=== PATIENT | male | born 2000 | race Caucasian/White ===

== ENCOUNTER 2023-06-07 08:58 | Emergency (ER) | payer SELFPAY ==
[2023-06-07 09:08] VITALS: BP 125/74; PULSE 62; RESP 16; TEMP 36.4; O2SAT 98; BMI 25.1
--- NOTE | 2023-06-07 09:39 | XR_ITS ---
WS: [id number] Exam: XR chest 1V portable [id number] Date/Time of Exam: 06/07/2023 9:41 AM Reason For Exam: dyspnea/cough Findings: The lungs are clear and fully expanded. Costophrenic angles are sharp. No infiltrates. Bronchovascula r relief appears normal. Cardiac silhouette is unremarkable. Bony elements are intact. IMPRESSION: Unremarkable chest radiograph.
--- NOTE | 2023-06-07 09:51 | ED_ITS ---
HPI - Abdominal Pain 2 General: Chief Complaint: Abdominal Pain Stated Complaint: abd pain, throwing blood up Time Seen by Provider: 06/07/23 09:37 Source: patient Mode of arrival: ambulatory History of Present Illness: 22-year-old male presents emergency room with epigastric discomfort. States he has a history of hiatal hernia he is not on any proton pump inhibitors. Does not use any alcohol on a regular basis has not had any alcohol in over a week. States he had several episodes of hematemesis this morning since 6 AM. No previous history upper GI bleed no melena or hematochezia. He does not take large amounts of NSAIDs. No fever sweats chills. MD elicited complaint: abdominal pain Pertinent past history: none Onset (ago): hour(s) Pain Consistency: constant Location: Epigastric Severity: moderate Quality: sharp Associated Symptoms: Reports hematemesis, poor appetite and vomiting; Denies anorexia, belching, bloating, change in bowel habits, change in stool character, chills, coffee ground emesis, constipation, GI cramping, diarrhea, dyspepsia, dysuria, excessive flatus, fever(s), heartburn, hematochezia, hematuria, fecal incontinence, loose stools, melena, nausea and syncope Review of Systems 2 Const: Denies: fever(s) or chills Card: Denies: syncope Resp: Denies: dyspnea GI: Reports: vomiting and hematemesis; Denies: nausea, coffee ground emesis, heartburn, diarrhea, constipation, bloating, GI cramping, belching, excessive flatus, fecal incontinence, change in bowel habits, change in stool character, hematochezia or melena : Denies: dysuria or hematuria Musc: Denies: neck pain or back pain Skin/Breast: Denies: rash Physical Exam 2 Const: COMMON NORMALS: no acute distress GENERAL APPEARANCE: cooperative and comfortable ORIENTATION/CONSCIOUSNESS: Yes awake, Yes oriented to person, Yes oriented to place and Yes oriented to time HENMT: COMMON NORMALS: normocephalic, atraumatic and hearing grossly normal bilaterally HEAD & SCALP: normocephalic and atraumatic Resp: COMMON NORMALS: normal respiratory effort, No retractions, No use of accessory muscles and clear to auscultation bilaterally AUSCULTATION: clear to auscultation bilaterally Cardio: COMMON NORMALS: regular rate, regular rhythm and No murmurs present (Cardio) RATE: regular rate RHYTHM: regular rhythm GI: COMMON NORMALS: Soft to palpation and No hepatosplenomegaly present A USCULTATION: Yes normoactive bowel sounds PALPATION: Yes Soft to palpation, No Tenderness to palpation present (GI), No Guarding due to palpation present (GI) and Yes No hepatosplenomegaly present Extremity: COMMON NORMALS: normal to inspection, capillary refill normal, no clubbing, cyanosis or edema, no calf tenderness and no pedal edema Neuro: SENSORIUM/ORIENTATION: Yes oriented to person, Yes oriented to place and Yes oriented to time Skin: COMMON NORMALS: no rashes or lesions noted GENERAL SKIN EXAM: no rashes or lesions noted Course 2 Vital Signs: Vital signs: Vital Signs Temperature 97.6 F 06/07/23 09:08 Pulse Rate 42 L 06/07/23 13:00 Respiratory Rate 16 06/07/23 13:00 Blood Pressure 112/66 06/07/23 13:00 Pulse Oximetry 96 06/07/23 13:00 Oxygen Delivery Me thod Room Air 06/07/23 09:08 MDM - Abdominal Pain Medical Decision Making BUN normal hemoglobin stable CT does not show any sign of active bleed or acute abdominal pathology discharge home on Protonix twice daily 10 days then daily follow-up with general surgery to evaluate if persisting with symptoms may need EGD. Lab Data 06/07/23 09:48 06/07/23 09:48 Labs/Radiology: Laboratory Results WBC 4.94 10^3/uL (3.29-11.43) 06/07/23 09:48 RBC 5.10 10^6/uL (3.85-5.65) 06/07/23 09:48 Hgb 13.90 g/dL (11.27-16.99) 06/07/23 09:48 Hct 43.0 % (37-53) 06/07/23 09:48 MCV 84.3 fl (82-101) 06/07/23 09:48 MCH 27.3 pg (27-33) 06/07/23 09:48 MCHC 32.3 g/dL (30-55) 06/07/23 09:48 RDW 13.2 % (12.1-15.1) 06/07/23 09:48 Plt Count 218 10^3/cmm (157-399) 06/07/23 09:48 MPV 11.2 fL (7.4-10.4) H 06/07/23 09:48 Neut % (Auto) 53.5 % 06/07/23 09:48 Lymph % (Auto) 33.4 % 06/07/23 09:48 [place] % (Auto) 10.9 % 06/07/23 09:48 Eos % (Auto) 1.0 % 06/07/23 09:48 Baso % (Auto) 1.0 % 06/07/23 09:48 Neut # (Auto) 2.64 10^3/uL (1.8-7.7) 06/07/23 09:48 Lymph # (Auto) 1.7 10^3/uL (0.8-4.8) 06/07/23 09:48 [place] # (Auto) 0.5 10^3/uL (0.2-0.9) 06/07/23 09:48 Eos # (Auto) 0.1 10^3/uL (0.0-0.8) 06/07/23 09:48 Baso # (Auto) 0.1 10^3/uL (0.0-0.1) 06/07/23 09:48 Nucleated RBC % (auto) 0 % 06/07/23 09:48 Nucleated RBCs # 0.0 /100WBC 06/07/23 09:48 Sodium 141 mmol/L (136-145) 06/07/23 09:48 Potassium 4.0 mmol/L (3.5-5.1) 06/07/23 09:48 Chloride 106 mmol/L (98-107) 06/07/23 09:48 Carbon Dioxide 26 mmol/L (22-29) 06/07/23 09:48 Anion Gap 13.0 (5-19) 06/07/23 09:48 BUN 9 mg/dL (6-20) 06/07/23 09:48 Creatinine 0.8 mg/dL (0.7-1.2) 06/07/23 09:48 GFR Calculation 120.9 mL/min (90-130) 06/07/23 09:48 Glucose 112 mg/dL (65-115) 06/07/23 09:48 Calculated Osmolality 291 mOsm/kg (285-295) 06/07/23 09:48 Calcium 9.5 mg/dL (8.5-10.5) 06/07/23 09:48 Total Bilirubin 0.2 mg/dL (0.15-1.2) 06/07/23 09:48 AST 11 U/L (0-40) 06/07/23 09:48 ALT 11 U/L (0-41) 06/07/23 09:48 Alkaline Phosphatase 64 U/L (40-130) 06/07/23 09:48 Total Protein 6.8 g/dL (6.6-8.7) 06/07/23 09:48 Albumin 4.6 g/dL (3.5-5.2) 06/07/23 09:48 Globulin 2.2 g/dL (1.3-4.6) 06/07/23 09:48 Lipase 17 U/L (13-60) 06/07/23 09:48 Urine Color Yellow (Yellow) 06/07/23 12:00 Urine Appearance Clear (CLEAR) 06/07/23 12:00 Urine pH 8 (5-7) H 06/07/23 12:00 Ur Specific [place] 1.010 (1.005-1.030) 06/07/23 12:00 Urine Protein Neg (Negative) 06/07/23 12:00 Urine Glucose (UA) Norm (Normal) 06/07/23 12:00 Urine Ketones Negative (Negative) 06/07/23 12:00 Urine Blood Neg (Negative) 06/07/23 12:00 Urine Nitrate Negative (Negative) 06/07/23 12:00 Urine Bilirubin Neg (Negative) 06/07/23 12:00 Prot Sulfosalicylic Acd Negative (Negative) 06/07/23 12:00 Urine Urobilinogen Norm mg/dL (Negative) 06/07/23 12:00 Ur Leukocyte Esterase Negative (Negative) 06/07/23 12:00 All radiology interpretation(s) finalized by discharge Discharge Plan Discharge Patient Disposition: Home Clinical Impression: Gastroesophageal reflux disease Condition: Stable Prescriptions: New Protonix 40 mg tablet,delayed release (DR/EC) 40 mg PO BID 10 Days Qty: 40 0RF Rx Instructions: Twice daily for 10 days then daily No Action Tylenol Ex Str Rapid Release 500 mg Tablet 1,000 - 1,500 mg PO Q6H PRN (Reason: Pain) Discharge Orders: Discharge ED (Routine); Ordered 06/07/23 Ordered By: Mnior Leahy Discharge Diet: As Directed Discharge Activity: Resume usual activity Patient Instructions: Diet for Stomach Ulcers and Gastritis (ED), GERD (Gastroesophageal Reflux Disease) (ED), Opioid Safety, Pain Management Activity Restrictions/Additional Instructions: Thank you for choosing [facility] for your healthcare needs today. Please realize this is an emergency room and that we are providing you with a medical screening exam and this may not be complete and all inclusive of all the testing and or work up that you may need to determine your ailment or severity of your illness. It is very important that you follow up as instructed or that you return to the Emergency Department should you have concerns or if your condition changes or worsens in any way. You were seen today for abdominal pain. CT and laboratory tests were unremarkable there is no sign of active GI bleed on any of the testing done. Do recommend that you start on Protonix twice daily for 10 days then once daily thereafter follow-up with surgery to reevaluate. Case management make appointment for you. Coding Level of Care Code ED Assistant Prosecuting Attorney for Isabel Landaverde
[2023-06-07 10:12] LABS: Basophils # 0.1 10^3/uL (0.0-0.1); Eosinophils # 0.1 10^3/uL (0.0-0.8); Lymphocytes # 1.7 10^3/uL (0.8-4.8); Lymphocytes % 33.4 %; Mean Corpuscular HGB Conc 32.3 g/dL (30-55); Mean Corpuscular Hemoglobin 27.3 pg (27-33); Mean Corpuscular Volume 84.3 fl (82-101); Mean Platelet Volume 11.2 fL (7.4-10.4); Monocytes # 0.5 10^3/uL (0.2-0.9); Monocytes % 10.9 %; Neutrophils # 2.64 10^3/uL (1.8-7.7); Neutrophils % 53.5 %; Nucleated Red Blood Cells % 0 %; Platelet Count 218 10^3/cmm (157-399); Red Cell Distribution Width 13.2 % (12.1-15.1); White Blood Count 4.94 10^3/uL (3.29-11.43)
[2023-06-07] MEDS: pantoprazole 40 mg SDV 80 MG IVP (10:12)
[2023-06-07] MEDS: sodium chloride 0.9% 1,000 ML 999 ML IV (10:12)
[2023-06-07] MEDS: ondansetron 2 mg/ML SDV 2 mL 4 MG IVP (10:12)
[2023-06-07 10:33] LABS: Alanine Aminotransferase 11 U/L (0-41); Albumin Level 4.6 g/dL (3.5-5.2); Alkaline Phosphatase 64 U/L (40-130); Aspartate Amino Transferase 11 U/L (0-40); Blood Urea Nitrogen 9 mg/dL (6-20); Calcium 9.5 mg/dL (8.5-10.5); Carbon Dioxide 26 mmol/L (22-29); Chloride 106 mmol/L (98-107); Creatinine Clr Calc Pharmacy 150.0903; Globulin 2.2 g/dL (1.3-4.6); Glomerular Filtration Rate 120.9 mL/min (90-130); Glucose 112 mg/dL (65-115); Lipase 17 U/L (13-60); Osmolality Calculated 291 mOsm/kg (285-295); Sodium 141 mmol/L (136-145); Total Bilirubin 0.2 mg/dL (0.15-1.2); Total Protein 6.8 g/dL (6.6-8.7)
--- NOTE | 2023-06-07 11:05 | CT_ITS ---
WS: [id number] CT ABDOMEN PELVIS TECHNIQUE: Contrast-enhanced CT of the abdomen and pelvis with coronal and sagittal reformatted image s. CLINICAL INFORMATION: abd pain COMPARISON: None. DLP: 465.[address] scans at [facility] use at least one of these dose optimization techniques: automated e xposure control; mA and/or kV adjustment per patient size (includes targeted exams where dose is matc hed to clinical indication); or iterative reconstruction. FINDINGS: Normal air-filled appendix in the RIGHT lower quadrant. No evidence of acute appendicitis. Mild diffuse fatty filtration of the liver. Normal portal vein and splenic vein. Normal spleen. Lung bases are well aerated. Normal GE junction. Air-fluid level in the stomach. Adrenal glands are normal . Normal renal parenchymal enhancement. No hydronephrosis. Celiac and SMA are patent. Tiny fat-containing umbilical hernia. No evidence of high-grade small or l arge bowel obstruction. The IMPRESSION: No acute findings in the abdomen or pelvis.
[2023-06-07] MEDS: iohexol 350 mg/mL 500 mL Btl (per mL) IV (11:21)
[2023-06-07 12:00] VITALS: BP 110/64; PULSE 49; RESP 16; O2SAT 98
[2023-06-07 12:30] VITALS: BP 110/65; PULSE 49; RESP 16; O2SAT 96
[2023-06-07 12:39] LABS: Add Urine Microscopic? NO; Charge for UA Resulting for Rev
[2023-06-07 12:57] LABS: Bilirubin Urine Neg (Negative); Blood Urine Neg (Negative); Glucose Urine UA Norm (Normal); Ketones Urine Negative (Negative); Leukocyte Esterase Urine Negative (Negative); Nitrate Urine Negative (Negative); Protein Urine Neg (Negative); Sulfosalicylic Acid Urine Negative (Negative); Urine Appearance Clear (CLEAR); Urine Color Yellow (Yellow); Urobilinogen Urine Norm (Negative); pH Urine 8 (5-7)
[2023-06-07 13:00] VITALS: BP 112/66; PULSE 42; RESP 16; O2SAT 96
--- NOTE | 2023-06-07 15:44 | DCPLANNER ---
Message was sent to general surgery on 06/07/23 at [id number]. Clinic to contact patient.
== END 2023-06-07 13:47 | disposition home or self-care (01) ==
PROVIDERS: Emergency Provider Family Medicine
DX: K21.9 Gastro-esophageal reflux disease without esophagitis (principal)
CPT/HCPCS: 71045; 74177; 80053; 81003; 83690; 85025; 96374; 96375; 99285; C9113; J2405; J7030; Q9967

== ENCOUNTER 2023-06-27 08:45 | Emergency (ER) | payer SELFPAY ==
[2023-06-27 08:52] VITALS: BP 156/88; PULSE 65; RESP 18; TEMP 36.4; O2SAT 95; BMI 25.8
--- NOTE | 2023-06-27 09:16 | ED_ITS ---
HPI - URI/Sore Throat General: Chief Complaint: Upper Respiratory Infection Stated Complaint: sore throat, fever, cold sweats, body aches Time Seen by Provider: 06/27/23 08:54 Source: patient Mode of arrival: ambulatory History of Present Illness: 23-year-old male presents emergency room complaining of fever and sore throat. MD elicited complaint: fever, cough and sore throat Associated symptoms: Deny abdominal pain, change in voice, chills, chest pain, congestion, cough, diarrhea, epistaxis, ear or mastoid pain, fever(s), headache(s), myalgias, nasal congestion, nausea, rash, rhinorrhea, short of breath, sinus pain, stiffness, sore throat or vomiting Review of Systems Const: Denies: fever(s) or chills ENMT: Denies: ear or mastoid pain, nasal congestion, epistaxis or sinus pain Card: Denies: chest pain Resp: Denies: dyspnea GI: Denies: abdominal pain, nausea, vomiting or diarrhea : Denies: dysuria, urinary frequency or urinary urgency Musc: Denies: neck pain or back pain Skin/Breast: Denies: rash Neuro: Denies: headache(s) Physical Exam Const: COMMON NORMALS: no acute distress GENERAL APPEARANCE: cooperative and comfortable ORIENTATION/CONSCIOUSNESS: Yes awake, Yes oriented to person, Yes oriented to place and Yes oriented to time HENMT: COMMON NORMALS: normocephalic, atraumatic and hearing grossly normal bilaterally HEAD & SCALP: normocephalic and atraumatic Resp: COMMON NORMALS: normal respiratory effort, No retractions, No use of accessory muscles and clear to auscultation bilaterally AUSCULTATION: clear to auscultation bilaterally Cardio: COMMON NORMALS: regular rate, regular rhythm and No murmurs present (Cardio) RATE: regular rate RHYTHM: regular rhythm GI: COMMON NORMALS: Soft to palpation and No hepatosplenomegaly present AUSCULTATION: Yes normoactive bowel sounds PALPATION: Yes Soft to palpation, No Tenderness to palpation present (GI), No Guarding due to palpation present (GI) and Yes No hepatosplenomegaly present Extremity: COMMON NORMALS: normal to inspection, capillary refill normal, no clubbing, cyanosis or edema, no calf tenderness and no pedal edema Neuro: SENSORIUM/ORIENTATION: Yes oriented to person, Yes oriented to place and Yes oriented to time Skin: COMMON NORMALS: no rashes or lesions noted GENERAL SKIN EXAM: no rashes or lesions noted Course Vital Signs: Vital signs: Vital Signs Temperature 97.6 F 06/27/23 08:52 Pulse Rate 65 06/27/23 08:52 Respiratory Rate 18 06/27/23 08:52 Blood Pressure 156/88 06/27/23 08:52 Pulse Oximetry 95 06/27/23 08:52 Oxygen Delivery Me thod Room Air 06/27/23 08:52 MDM - URI/Sore Throat Medical Decision Making No tonsillar hypertrophy no exudates no submandibular lymphadenopathy. Suspect viral upper respiratory infection Tylenol ibuprofen as needed follow-up as needed for worsening symptoms or change follow-up with PCP Medical Records I reviewed the patient's medical records. No radiology studies performed this visit Discharge Plan Discharge Patient Disposition: Home Clinical Impression: Viral pharyngitis Condition: Stable Prescriptions: No Action Tylenol Ex Str Rapid Release 500 mg Tablet 1,000 - 1,500 mg PO Q6H PRN (Reason: Pain) Discharge Orders: Discharge ED (Routine); Ordered 06/27/23 Ordered By: Minor Leahy Discharge Diet: Usual diet Discharge Activity: Resume usual activity Patient Instructions: Viral Syndrome (ED), Opioid Safety, Pain Management Activity Restrictions/Additional Instructions: Thank you for choosing [facility] for your healthcare needs today. Please realize this is an emergency room and that we are providing you with a medical screening exam and this may not be complete and all inclusive of all the testing and or work up that you may need to determine your ailment or severity of your illness. It is very important that you follow up as instructed or that you return to the Emergency Department should you have concerns or if your condition changes or worsens in any way. Coding Level of Care Code ED Reconnaissance Crewmember for Isabel Landaverde
== END 2023-06-27 09:54 | disposition home or self-care (01) ==
PROVIDERS: Emergency Provider Family Medicine
DX: J02.8 Acute pharyngitis due to other specified organisms (principal)
CPT/HCPCS: 99282

== ENCOUNTER 2024-01-14 01:45 | Inpatient (IN) | payer SELFPAY ==
--- NOTE | 2024-01-14 01:46 | XRR_ITS ---
PROCEDURE INFORMATION: Exam: XR Chest Exam date and time: 01/14/2024 2:12 AM Age: 23 years old Clinical indication: Other: Suicidal ideation TECHNIQUE: Imaging protocol: Radiologic exam of the chest. Views: 1 view. COMPARISON: CR XR chest 1V portable [id number] 06/07/2023 9:43 AM FINDINGS: Lungs: Unremarkable. No consolidation. Pleural spaces: Unremarkable. No pleural effusion. No pneumothorax. Heart/Mediastinum: Unremarkable. No cardiomegaly. Bones/joints: Unremarkable. XR/XR chest 1V portable [id number] IMPRESSION: No acute findings.
[2024-01-14 01:47] VITALS: BP 130/65; PULSE 59; RESP 17; TEMP 36.5; O2SAT 96; BMI 26.1
[2024-01-14 02:05] LABS: Add Urine Microscopic? NO; Charge for UA Resulting for Rev
[2024-01-14 02:06] LABS: Hematocrit 43.1 % (37-53); Mean Corpuscular HGB Conc 32.3 g/dL (30-55); Mean Corpuscular Volume 83.7 fl (82-101); Mean Platelet Volume 10.8 fL (7.4-10.4); Platelet Count 230 10^3/cmm (157-399); Red Blood Count 5.15 10^6/uL (3.85-5.65); Red Cell Distribution Width 13.3 % (12.1-15.1)
[2024-01-14 02:07] LABS: Basophils # 0.1 10^3/uL (0.0-0.1); Eosinophils # 0.1 10^3/uL (0.0-0.8); Eosinophils % 1.9 %; Lymphocytes # 2.3 10^3/uL (0.8-4.8); Monocytes # 0.6 10^3/uL (0.2-0.9); Monocytes % 10.9 %; Neutrophils # 2.67 10^3/uL (1.8-7.7)
[2024-01-14 02:08] LABS: Bilirubin Urine Neg (Negative); Blood Urine Neg (Negative); Glucose Urine UA Norm (Normal); Ketones Urine Negative (Negative); Leukocyte Esterase Urine Negative (Negative); Nitrate Urine Negative (Negative); Protein Urine Neg (Negative); Urine Appearance Clear (CLEAR); Urine Color Yellow (Yellow); Urobilinogen Urine Neg (Negative); pH Urine 6 (5-7)
[2024-01-14 02:16] LABS: Amphetamines Screen Urine Negative (Negative); Barbiturates Screen Urine Negative (Negative); Benzodiazepines Screen Urine Negative (Negative); Cocaine Screen Urine Negative (Negative); Opiate Screen Urine Negative (Negative); PCP Screen Urine Negative (Negative); THC Screen Urine Positive (Negative)
--- NOTE | 2024-01-14 02:24 | ECG_ITS ---
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 Measurements Intervals [place] Rate: 53 P: 23 AR: 154 QRS: 53 QRSD: 101 T: 32 QT: 400 QTc: 376 Interpretive Statements SINUS BRADYCARDIA No previous ECG available for comparison Electronically Signed On 01-14-2024 6:59:31 CDT by Tim Mathis M.D. [email or web address]
[2024-01-14 02:31] LABS: Anion Gap 17.4 (5-19); Carbon Dioxide 24 mmol/L (22-29); Chloride 104 mmol/L (98-107); Potassium 3.4 mmol/L (3.5-5.1); Sodium 142 mmol/L (136-145)
[2024-01-14 02:32] LABS: Acetaminophen < 5.0 ug/mL (10-30); Alanine Aminotransferase 15 U/L (0-41); Albumin Level 4.6 g/dL (3.5-5.2); Alkaline Phosphatase 80 U/L (40-130); Aspartate Amino Transferase 18 U/L (0-40); Blood Urea Nitrogen 10 mg/dL (6-20); Calcium 8.8 mg/dL (8.5-10.5); Globulin 2.5 g/dL (1.3-4.6); Glomerular Filtration Rate 104.6 mL/min (90-130); Glucose 121 mg/dL (65-115); Osmolality Calculated 294 mOsm/kg (285-295); Salicylate < 0.3 mg/dL (3-10); Total Bilirubin 0.4 mg/dL (0.15-1.2); Total Protein 7.1 g/dL (6.6-8.7)
[2024-01-14 02:33] LABS: Alcohol Level 46 mg/dL (0-10)
--- NOTE | 2024-01-14 02:37 | ED.C_ITS ---
HPI - Psych 2 General: Chief Complaint: Psychiatric Symptoms Stated Complaint: si Time Seen by Provider: 01/14/24 01:46 History of Present Illness: Patient is brought in by EMS for suicidal ideation. Patient states he did try to harm himself with a kitchen knife he has a small lack on his right forearm, and he told his girlfriend that she was florecita she took her pills with her otherwise he would have taken the mall to commit suicide. Patient does have a history although distant of being in patiently treated. And seeing a psychiatrist. Patient currently on no medicine. Patient agrees he is suicidal and having dark thoughts and is voluntarily willing to go inpatient treatment. Review of Systems 2 General: Reports: 10 or more systems reviewed and unremarkable except in HPI and below Physical Exam 2 Const: COMMON NORMALS: no acute distress, average body habitus, patient oriented x3, no limitations, healthy appearing, alert and well nourished HENMT: COMMON NORMALS: normocephalic, atraumatic, hearing grossly normal bilaterally, external ears normal, Normal external nose present and moist oral mucous membranes HEAD & SCALP: normocephalic and atraumatic NOSE: Normal external nose present EXTERNAL EAR: Yes external ears normal Neck/C-Spine: COMMON NORMALS: no JVD Chest: COMMONS NORMALS: normal inspection of the chest and normal palpation of entire chest wall Resp: COMMON NORMALS: normal respiratory effort, No retractions, No use of accessory muscles and clear to auscultation bilaterally AUSCULTATION: clear to auscultation bilaterally Cardio: COMMON NORMALS: no JVD, regular rate, regular rhythm, S1 normal heart sound present, S2 normal heart sound present, No gallops present (Cardio), No clicks present (Cardio) and No murmurs present (Cardio) RATE: regular rate RHYTHM: regular rhythm HEART SOUNDS: S1 normal heart sound present and S2 normal heart sound present GI: COMMON NORMALS: Normal to inspection, nondistended, normoactive bowel sounds present, Soft to palpation, non-tender, No hepatosplenomegaly present and no masses PALPATION: Yes Soft to palpation and Yes No hepatosplenomegaly present Neuro: COMMON NORMALS: patient oriented x3 SENSORIUM/ORIENTATION: Yes alert Course 2 Vital Signs: Vital signs: Vital Signs Temperature 97.7 F 01/14/24 01:47 Pulse Rate 59 L 01/14/24 01:47 Respiratory Rate 17 01/14/24 01:47 Blood Pressure 130/65 01/14/24 01:47 Pulse Oximetry 96 01/14/24 01:47 Oxygen Delivery Me thod Room Air 01/14/24 01:47 MDM - Psych Medical Decision Making Patient brought in for suicidal ideation/attempt patient was cleared medically with lab work and imaging. Dr. Londono was consulted who agreed to place the patient in [facility] for further evaluation and treatment. Differential Diagnosis Likely suicidal ideation Medical Records I reviewed the patient's medical records. Lab Data I reviewed the patient's lab results. 01/14/24 02:00 01/14/24 02:00 Laboratory Results WBC 5.80 10^3/uL (3.29-11.43) 01/14/24 02:00 RBC 5.15 10^6/uL (3.85-5.65) 01/14/24 02:00 Hgb 13.90 g/dL (11.27-16.99) 01/14/24 02:00 Hct 43.1 % (37-53) 01/14/24 02:00 MCV 83.7 fl (82-101) 01/14/24 02:00 MCH 27.0 pg (27-33) 01/14/24 02:00 MCHC 32.3 g/dL (30-55) 01/14/24 02:00 RDW 13.3 % (12.1-15.1) 01/14/24 02:00 Plt Count 230 10^3/cmm (157-399) 01/14/24 02:00 MPV 10.8 fL (7.4-10.4) H 01/14/24 02:00 Neut % (Auto) 46.0 % 01/14/24 02:00 Lymph % (Auto) 40.0 % 01/14/24 02:00 [place] % (Auto) 10.9 % 01/14/24 02:00 Eos % (Auto) 1.9 % 01/14/24 02:00 Baso % (Auto) 1.0 % 01/14/24 02:00 Neut # (Auto) 2.67 10^3/uL (1.8-7.7) 01/14/24 02:00 Lymph # (Auto) 2.3 10^3/uL (0.8-4.8) 01/14/24 02:00 [place] # (Auto) 0.6 10^3/uL (0.2-0.9) 01/14/24 02:00 Eos # (Auto) 0.1 10^3/uL (0.0-0.8) 01/14/24 02:00 Baso # (Auto) 0.1 10^3/uL (0.0-0.1) 01/14/24 02:00 Sodium 142 mmol/L (136-145) 01/14/24 02:00 Potassium 3.4 mmol/L (3.5-5.1) L 01/14/24 02:00 Chloride 104 mmol/L (98-107) 01/14/24 02:00 Carbon Dioxide 24 mmol/L (22-29) 01/14/24 02:00 Anion Gap 17.4 (5-19) 01/14/24 02:00 BUN 10 mg/dL (6-20) 01/14/24 02:00 Creatinine 0.9 mg/dL (0.7-1.2) 01/14/24 02:00 GFR Calculation 104.6 mL/min (90-130) 01/14/24 02:00 Glucose 121 mg/dL (65-115) H 01/14/24 02:00 Calculated Osmolality 294 mOsm/kg (285-295) 01/14/24 02:00 Calcium 8.8 mg/dL (8.5-10.5) 01/14/24 02:00 Total Bilirubin 0.4 mg/dL (0.15-1.2) 01/14/24 02:00 AST 18 U/L (0-40) 01/14/24 02:00 ALT 15 U/L (0-41) 01/14/24 02:00 Alkaline Phosphatase 80 U/L (40-130) 01/14/24 02:00 Total Protein 7.1 g/dL (6.6-8.7) 01/14/24 02:00 Albumin 4.6 g/dL (3.5-5.2) 01/14/24 02:00 Globulin 2.5 g/dL (1.3-4.6) 01/14/24 02:00 TSH 3.74 uIU/mL (0.27-4.20) 01/14/24 02:00 Urine Color Yellow (Yellow) 01/14/24 02:00 Urine Appearance Clear (CLEAR) 01/14/24 02:00 Urine pH 6 (5-7) 01/14/24 02:00 Ur Specific [place] 1.010 (1.005-1.030) 01/14/24 02:00 Urine Protein Neg (Negative) 01/14/24 02:00 Urine Glucose (UA) Norm (Normal) 01/14/24 02:00 Urine Ketones Negative (Negative) 01/14/24 02:00 Urine Blood Neg (Negative) 01/14/24 02:00 Urine Nitrate Negative (Negative) 01/14/24 02:00 Urine Bilirubin Neg (Negative) 01/14/24 02:00 Urine Urobilinogen Neg mg/dL (Negative) 01/14/24 02:00 Ur Leukocyte Esterase Negative (Negative) 01/14/24 02:00 Salicylates < 0.3 mg/dL (3-10) L 01/14/24 02:00 Urine Opiates Screen Negative ng/mL (Negative) 01/14/24 02:00 Acetaminophen < 5.0 ug/mL (10-30) L 01/14/24 02:00 Ur Barbiturates Screen Negative ng/mL (Negative) 01/14/24 02:00 Ur Phencyclidine Scrn Negative ng/mL (Negative) 01/14/24 02:00 Ur Amphetamines Screen Negative ng/mL (Negative) 01/14/24 02:00 U Benzodiazepines Scrn Negative ng/mL (Negative) 01/14/24 02:00 Urine Cocaine Screen Negative ng/mL (Negative) 01/14/24 02:00 U Marijuana (THC) Screen Positive ng/mL (Negative) H 01/14/24 02:00 Ethyl Alcohol 46 mg/dL (0-10) H 01/14/24 02:00 Influenza Type A Ag Negative (Negative) 01/14/24 02:26 Influenza Type B Ag Negative (Negative) 01/14/24 02:26 RSV Antigen Negative (Negative) 01/14/24 02:26 SARS-CoV-2 Ag (Rapid) Negative (Negative) 01/14/24 02:26 All radiology interpretation(s) finalized by discharge EKG Data EKG 1: I personally reviewed and interpreted this EKG as follows: EKG interpretation date: 01/14/24 EKG interpretation time: 02:24 Prior EKG tracings: not available for review Interpretation: Ventricular rate 53 bpm, [place] interval 154, QRS duration 1 1, QTc of 322, sinus bradycardia Discharge Plan Discharge Patient Disposition: Admitted As Inpatient Clinical Impression: Suicidal ideation Condition: Stable Coding Level of Care Code ED Cue Selector for Isabel Landaverde
[2024-01-14 02:40] LABS: Thyroid Stimulating Hormone 3.74 uIU/mL (0.27-4.20)
[2024-01-14 03:04] LABS: Influenza A by IFA Negative (Negative); Influenza B by IFA Negative (Negative); RSV Transfer Patient (ED) Negative (Negative); SARS Covid-2 Antigen Negative (Negative)
[2024-01-14 04:47] VITALS: BP 121/68; PULSE 66; RESP 18; TEMP 36.5; O2SAT 100
[2024-01-14 06:00] VITALS: RESP 18
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
[2024-01-14 14:00] VITALS: BP 116/69; PULSE 52; RESP 16; TEMP 36.6; O2SAT 99
--- NOTE | 2024-01-14 19:09 | PC.NURSE ---
This nurse served patient 96-hour paperwork. Discussed with patient. patient upset, stating that he wants to go home, that he has things to take care of. Patient denied any questions, stating that he is going to [facility]. This nurse encouraged patient to come to staff with any questions.
[2024-01-14 21:47] VITALS: BP 120/50; PULSE 60; RESP 17; TEMP 36.6; O2SAT 99
[2024-01-15 06:00] VITALS: BP 110/62; PULSE 57; RESP 17; TEMP 36.6; O2SAT 99
--- NOTE | 2024-01-15 12:15 | PC.NURSE ---
Family member, Ama Nichole , called this morning and asked who she needed to speak to in order to get the patient discharged. This RN spoke to her about staffs' concerns for the patient and that only the doctor could discharge him. She left her number with this nurse and asked that staff give him the note to call her.
[2024-01-15 14:00] VITALS: BP 130/80; PULSE 86; RESP 17; O2SAT 97
--- NOTE | 2024-01-15 14:11 | P.NPUPN_ITS ---
Subjective NPU 2 Subjective: Patient presented today reporting that he is wanting to leave. We discussed the passive-aggressive behavior that he displayed yesterday and he can give no reason why he did not discuss his desire to leave in the 30 minutes we were conversing. We had a lengthy discussion about how this behavior is likely one of the reasons that he and his significant other have challenges as he likely will take what ever she is missing out without being assertive about how he feels and then eventually acts out in a passive-aggressive way. She came to the unit and visited and tried to sign him out identifying that she was the person that called 911 and so then he should have the authority to discharge him. We discussed admission and discharge as well as 96-hour hold. We discussed their challenging dynamics. He raised concerns for needing to work and make money. We discussed the fact that both things are true when he came to the hospital and are not new concerns or issues. We discussed the likelihood of discharge on Wednesday with appropriate follow-up. We continued without medication. Mental Status Exam 2 MSE Comments: This is a slender white male in hospital scrubs with adequate grooming and limited eye contact. No abnormal movements except for mild psychomotor agitation. Somewhat cooperative with exam in mild to moderate distress. Speech was slightly decreased rate and volume. Mood described as I want to go being here does not help, affect subdued. Thought process linear to organized. Thought content: Patient denied suicidal or homicidal ideation, he endorsed paranoia and seems slightly guarded, he denied any auditory or visual hallucinations. The patient reported feeling paranoid, which he attributes to his past involvement in drug dealing. He also reported hearing voices, specifically hearing his name when no one has said it. He denied current suicidal or homicidal ideation. He described his mood as seldom and floating. Attention and concentration appear intact and memory appears somewhat reliable but none were formally tested. He is alert and oriented x 3. Insight and judgment are limited and impulse control is impaired. Vitals/I&O/Wt Last Vital Signs Temp 97.8 F 01/15/24 06:00 Pulse 57 L 01/15/24 06:00 Resp 17 01/15/24 06:00 BP 110/62 01/15/24 06:00 Pulse Ox 99 01/15/24 06:00 O2 Del Method Room Air 01/14/24 04:56 Weight last 48 hrs Weight 80.286 kg Data NPU 07/19/24 02:00 01/14/24 02:00 A&P Assessment and plan (1) Suicidal ideation: (2) Major depressive disorder, recurrent: (3) Partner relational problem: (4) Cannabis use disorder: (5) Alcohol use: Plan This is a 23-year-old, white male, with history of mental health treatment in his youth but also with trauma and addiction issues without significant follow- up since his childhood. The patient presents with a history of mental health issues, substance use, and a recent suicide attempt. He has a history of trauma from his childhood and is currently dealing with significant life stressors, including a recent breakup, homelessness, and ongoing conflict with his ex- partner. RECOMMENDATION AND PLAN: 1.? Will consider medication in the morning. 2.? Encourage individual, group, and milieu therapy. 3.? Continue q-15 minute checks for safety. 4.? Encourage sober living treatment, after discharge, at the highest level of care, to which he is willing to commit. 5. Immediately after initial conversation discussing medications patient went to the nursing station and tried to discharge AMA with no warning or discussion with this selling underwriter and was placed on a 96-hour hold. Involuntary Hold Information 2 96 Hour Hold: 96 Hour Involuntary Admission: No Attestations NPU 2 Medical Necessity Statement*: Inpatient hospitalization is medically necessary and the clinically appropriate intervention?at this time.? We will monitor/initiate medications and make changes as indicated.? ? The patient?s likely length of stay 2-4 days. Coding Level of Care Code Acute Code for [facility] Fwd Diagnoses Suicidal ideation R45.851 Major depressive disorder, recurrent F33.9 Partner relational problem Z63.0 Cannabis use disorder F12.90 Alcohol use Z78.9
[2024-01-15 19:59] VITALS: BP 114/75; PULSE 79; RESP 18; TEMP 36.6; O2SAT 98
[2024-01-16 06:00] VITALS: BP 110/70; PULSE 57; RESP 16; TEMP 36.6; O2SAT 97
--- NOTE | 2024-01-16 13:55 | P.NPUPN_ITS ---
Subjective NPU 2 Subjective: Patient presented today reporting that he is feeling better. We discussed the likelihood of discharge all morning which made him quite happy but he did report that he does want to get help and we discussed the importance of social work team returning tomorrow and establishing an appointment prior to discharge. We also discussed medication and the fact that he could consider medications with his outpatient treatment team. We had a lengthy discussion about the importance changes that he and his significant other need to make to avoid similar issues in the future. He was positive and pleasant during interview. Mental Status Exam 2 MSE Comments: This is a slender white male in hospital scrubs with adequate grooming and limited eye contact. No abnormal movements except for mild psychomotor agitation. Somewhat cooperative with exam in no acute distress. Speech was slightly decreased rate and volume. Mood described as better, affect congruent and more euthymic. Thought process linear to organized. Thought content: Patient denied suicidal or homicidal ideation, there were no delusions reported or noted, he denied any auditory or visual hallucinations. The patient reported feeling paranoid, which he attributes to his past involvement in drug dealing. He also reported hearing voices, specifically hearing his name when no one has said it. He denied current suicidal or homicidal ideation. Attention and concentration appear intact and memory appears somewhat reliable but none were formally tested. He is alert and oriented x 3. Insight and judgment are improving and impulse control is limited but improving. Vitals/I&O/Wt Last Vital Signs Temp 97.8 F 01/16/24 06:00 Pulse 57 L 01/16/24 06:00 Resp 16 01/16/24 06:00 BP 110/70 01/16/24 06:00 Pulse Ox 97 01/16/24 06:00 O2 Del Method Room Air 01/14/24 04:56 Weight last 48 hrs Weight 79.288 kg Data NPU 01/14/24 02:00 01/14/24 02:00 A&P Assessment and plan (1) Suicidal ideation: (2) Major depressive disorder, recurrent: (3) Partner relational problem: (4) Cannabis use disorder: (5) Alcohol use: Plan This is a 23-year-old, white male, with history of mental health treatment in his youth but also with trauma and addiction issues without significant follow- up since his childhood. The patient presents with a history of mental health issues, substance use, and a recent suicide attempt. He has a history of trauma from his childhood and is currently dealing with significant life stressors, including a recent breakup, homelessness, and ongoing conflict with his ex- partner. RECOMMENDATION AND PLAN: 1.? Will consider medication in the morning. 2.? Encourage individual, group, and milieu therapy. 3.? Continue q-15 minute checks for safety. 4.? Encourage sober living treatment, after discharge, at the highest level of care, to which he is willing to commit. 5. Immediately after initial conversation discussing medications patient went to the nursing station and tried to discharge AMA with no warning or discussion with this data analyst report writer and was placed on a 96-hour hold. Tentative discharge tomorrow. Involuntary Hold Information 2 96 Hour Hold: 96 Hour Involuntary Admission: No Attestations NPU 2 Medical Necessity Statement*: Inpatient hospitalization is medically necessary and the clinically appropriate intervention?at this time.? We will monitor/initiate medications and make changes as indicated.? ? The patient?s likely length of stay 1-3 days. Coding Level of Care Code Acute Code for g Fwd Diagnoses Suicidal ideation R45.851 Major depressive disorder, recurrent F33.9 Partner relational problem Z63.0 Cannabis use disorder F12.90 Alcohol use Z78.9
[2024-01-16 14:00] VITALS: BP 128/74; PULSE 61; RESP 17; TEMP 36.7; O2SAT 99
[2024-01-16 19:54] VITALS: BP 111/76; PULSE 66; RESP 17; TEMP 36.5; O2SAT 98
[2024-01-17 06:00] VITALS: BP 146/81; PULSE 65; RESP 18; TEMP 36.6; O2SAT 100
--- NOTE | 2024-01-17 07:10 | P.NPUDS_ITS ---
Diagnoses at Discharge Discharge Diagnosis (1) Suicidal ideation: Status: Acute (2) Major depressive disorder, recurrent: Status: Acute (3) Partner relational problem: Status: Acute (4) Cannabis use disorder: Status: Acute (5) Alcohol use: Status: Acute Reason for Visit Reason for Visit: si Involuntary Hold Information 96 Hour Hold: 96 Hour Involuntary Admission: No Mental Status Exam MSE Comments: This is a slender white male in hospital scrubs with adequate grooming and li mited eye contact. No abnormal movements except for mild psychomotor agitation. Somewhat cooperative with exam in no acute distress. Speech was slightly decreased rate and volume. Mood described as better, affect congruent and more euthymic. Thought process linear to organized. Thought content: Patient denied suicidal or homicidal ideation, there were no delusions reported or noted, he denied any auditory or visual hallucinations. The patient reported feeling paranoid, which he attributes to his past involvement in drug dealing. He also reported hearing voices, specifically hearing his name when no one has said it. He denied current suicidal or homicidal ideation. Attention and concentration appear intact and memory appears somewhat reliable but none were formally tested. He is alert and oriented x 3. Insight and judgment are improving and impulse control is limited but improving. Discharge Data Studies Completed and Pending: Completed Studies During Hospitalization Category Date Time Status XR chest 1V paul ble [id number] Stat Exams 01/14/24 01:46 Completed Radiology Impressions Chest X-Ray 01/14/24 01:46 IMPRESSION: No acute findings. Laboratory Results WBC 5.80 10^3/uL (3.2 9-11.43) 01/14/24 02:00 RBC 5.15 10^6/uL (3.8 5-5.65) 01/14/24 02:00 Hgb 13.90 g/dL (11.27 -16.99) 01/14/24 02:00 Hct 43.1 % (37-53) 01/14/24 02:00 MCV 83.7 fl (82-101) 01/14/24 02:00 MCH 27.0 pg (27-33) 01/14/24 02:00 MCHC 32.3 g/dL (30-55) 01/14/24 02:00 RDW 13.3 % (12.1-15.1 ) 01/14/24 02:00 Plt Count 230 10^3/cmm (157 -399) 01/14/24 02:00 MPV 10.8 fL (7.4-10.4 ) H 01/14/24 02:00 Neut % (Auto) 46.0 % 01/14/24 02:00 Lymph % (Auto) 40.0 % 01/14/24 02:00 [place] % (Auto) 10.9 % 01/14/24 02:00 Eos % (Auto) 1.9 % 01/14/24 02:00 Baso % (Auto) 1.0 % 01/14/24 02:00 Neut # (Auto) 2.67 10^3/uL (1.8 -7.7) 01/14/24 02:00 Lymph # (Auto) 2.3 10^3/uL (0.8- 4.8) 01/14/24 02:00 [place] # (Auto) 0.6 10^3/uL (0.2- 0.9) 01/14/24 02:00 Eos # (Auto) 0.1 10^3/uL (0.0- 0.8) 01/14/24 02:00 Baso # (Auto) 0.1 10^3/uL (0.0- 0.1) 01/14/24 02:00 Sodium 142 mmol/L (136-1 45) 01/14/24 02:00 Potassium 3.4 mmol/L (3.5-5 .1) L 01/14/24 02:00 Chloride 104 mmol/L (98-10 7) 01/14/24 02:00 Carbon Dioxide 24 mmol/L (22-29) 01/14/24 02:00 Anion Gap 17.4 (5-19) 01/14/24 02:00 BUN 10 mg/dL (6-20) 01/14/24 02:00 Creatinine 0.9 mg/dL (0.7-1. 2) 01/14/24 02:00 GFR Calculation 104.6 mL/min (90- 130) 01/14/24 02:00 Glucose 121 mg/dL (65-115 ) H 01/14/24 02:00 Calculated Osmolal ity 294 mOsm/kg (285- 295) 01/14/24 02:00 Calcium 8.8 mg/dL (8.5-10 .5) 01/14/24 02:00 Total Bilirubin 0.4 mg/dL (0.15-1 .2) 01/14/24 02:00 AST 18 U/L (0-40) 01/14/24 02:00 ALT 15 U/L (0-41) 01/14/24 02:00 Alkaline Phosphata se 80 U/L (40-130) 01/14/24 02:00 Total Protein 7.1 g/dL (6.6-8.7 ) 01/14/24 02:00 Albumin 4.6 g/dL (3.5-5.2 ) 01/14/24 02:00 Globulin 2.5 g/dL (1.3-4.6 ) 01/14/24 02:00 TSH 3.74 uIU/mL (0.27 -4.20) 01/14/24 02:00 Urine Color Yellow (Yellow) 01/14/24 02:00 Urine Appearance Clear (CLEAR) 01/14/24 02:00 Urine pH 6 (5-7) 01/14/24 02:00 Ur Specific Gravit y 1.010 (1.005-1.0 30) 01/14/24 02:00 Urine Protein Neg (Negative) 01/14/24 02:00 Urine Glucose (UA) Norm (Normal) 01/14/24 02:00 Urine Ketones Negative (Negati ve) 01/14/24 02:00 Urine Blood Neg (Negative) 01/14/24 02:00 Urine Nitrate Negative (Negati ve) 01/14/24 02:00 Urine Bilirubin Neg (Negative) 01/14/24 02:00 Urine Urobilinogen Neg mg/dL (Negati ve) 01/14/24 02:00 Ur Leukocyte Radha ase Negative (Negati ve) 01/14/24 02:00 Salicylates < 0.3 mg/dL (3-10 ) L 01/14/24 02:00 Urine Opiates Scre en Negative ng/mL (N egative) 01/14/24 02:00 Acetaminophen < 5.0 ug/mL (10-3 0) L 01/14/24 02:00 Ur Barbiturates Sc reen Negative ng/mL (N egative) 01/14/24 02:00 Ur Phencyclidine S crn Negative ng/mL (N egative) 01/14/24 02:00 Ur Amphetamines Sc reen Negative ng/mL (N egative) 01/14/24 02:00 U Benzodiazepines Scrn Negative ng/mL (N egative) 01/14/24 02:00 Urine Cocaine Scre en Negative ng/mL (N egative) 01/14/24 02:00 U Marijuana (THC) Screen Positive ng/mL (N egative) H 01/14/24 02:00 Ethyl Alcohol 46 mg/dL (0-10) H 01/14/24 02:00 Influenza Type A A g Negative (Negati ve) 01/14/24 02:26 Influenza Type B A g Negative (Negati ve) 01/14/24 02:26 RSV Antigen Negative (Negati ve) 01/14/24 02:26 SARS-CoV-2 Ag (Rap id) Negative (Negati ve) 01/14/24 02:26 Vitals: Last Vital Signs Temp 97.8 F 01/17/24 06:00 Pulse 65 01/17/24 06:00 Resp 18 01/17/24 06:00 BP 146/81 01/17/24 06:00 Pulse Ox 100 01/17/24 06:00 O2 Del Method Room Air 01/14/24 04:56 Discharge Plan Discharge Patient Disposition: Home Condition: Stable Prescriptions: No Action No Known Home Medications Discharge Orders: Discharge Order (Routine); Ordered 01/17/24 Ordered By: Nuno Londono Referrals: [facility] [Outside] Discharge Diet: Regular Discharge Activity: Resume usual activity Patient Instructions: Opioid Safety Discharge Attestations NPU Time Spent in Discharge Care*: less than 30 min Specific Discharge Activities: Specific discharge activities: educating patient, discussing with family caseworker/social workers/dc planners, documenting/o ther paperwork and evaluating patient/reviewing data Coding Level of Care Code Acute Code for Chg Fwd Diagnoses Suicidal ideation R45.851 Major depressive disorder, recurrent F33.9 Partner relational problem Z63.0 Cannabis use disorder F12.90 Alcohol use Z78.9
[2024-01-17 07:35] VITALS: BP 146/81; PULSE 65; RESP 18; TEMP 36.6; O2SAT 100
== END 2024-01-17 12:18 | disposition home or self-care (01) | DRG 885 ==
LOC: ER 04:32 → NP 04:41
PROVIDERS: Admitting Provider Psychiatry & Neurology Psychiatry; Emergency Provider Emergency Medicine; Visit Provider Psychiatry & Neurology Psychiatry
DX: F33.9 Major depressive disorder, recurrent, unspecified (principal); R45.851 Suicidal ideations; Z59.00 Homelessness unspecified; F10.90 Alcohol use, unspecified, uncomplicated; F12.90 Cannabis use, unspecified, uncomplicated; Y90.2 Blood alcohol level of 40-59 mg/100 ml; Z63.0 Problems in relationship with spouse or partner
CPT/HCPCS: 71045; 80053; 80306; 80307; 81003; 84443; 85025; 87426; 87804; 87899; 93005; 97165; 99285

== ENCOUNTER 2025-03-17 13:20 | Emergency (ER) | payer SELFPAY ==
[2025-03-17 13:31] VITALS: BP 138/79; PULSE 93; RESP 18; TEMP 36.7; O2SAT 98; BMI 28.8
--- NOTE | 2025-03-17 13:36 | CTR_ITS ---
PROCEDURE INFORMATION: Exam: CT Abdomen And Pelvis With Contrast Exam date and time: 03/17/2025 2:04 PM Age: 24 years old Clinical indication: Abdominal pain; Epigastric; Additional info: Abd pain TECHNIQUE: Imaging protocol: Computed tomography of the abdomen and pelvis with contrast. Radiation optimization: All CT scans at this facility use at least one of these dose optimization techniques: automated exposure control; mA and/or kV adjustment per patient size (includes targeted exams where dose is matched to clinical indication); or iterative reconstruction. Contrast material: OMNI 350; Contrast volume: 100 ml; Contrast route: INTRAVENOUS (IV); COMPARISON: CT abdomen pelvis w con* [id number] 06/07/2023 11:18 AM RADIATION DOSE METRICS: Total DLP (mGy-cm): 482.13 FINDINGS: Lungs: Visualized lung bases are clear. Liver: Normal appearance of the liver. Gallbladder and biliary ducts: Normal appearance of the gallbladder. No radiopaque cholelithiasis. Pancreas: Normal appearance of the pancreas. No ductal dilation. Spleen: Normal appearance of the spleen. Adrenal glands: Normal appearance of both adrenal glands. Kidneys and ureters: Normal appearance of both kidneys. No evidence of nephrolithiasis or hydronephrosis. No renal mass or cyst is seen. Stomach and bowel: Normal appearance of the stomach. Normal appearance of the small bowel without luminal dilation suggested. Minimal colonic stool. Appendix: The appendix is identified and normal in appearance. No evidence of appendicitis. Intraperitoneal space: Unremarkable. No free air. No significant fluid collection. Vasculature: Pelvic calcifications, likely representing incidental phleboliths. Normal appearance of the abdominal aorta. No evidence of atherosclerotic disease or aneurysm. Lymph nodes: Unremarkable. No enlarged lymph nodes. Urinary bladder: Normal appearance of the urinary bladder. No intravesicular stone. Reproductive: Unremarkable appearance of the prostate. Bones/joints: Regional osseous structures have a normal appearance. No fracture, aggressive osseous lesion or significant degenerative change is seen. Soft tissues: Tiny fatty umbilical hernia. CT/CT abdomen pelvis w con* [id number] IMPRESSION: 1. No evidence of acute intra-abdominal or pelvic pathology.
--- NOTE | 2025-03-17 13:36 | ED_ITS ---
HPI - Abdominal Pain 2 General: Chief Complaint: Abdominal Pain Stated Complaint: mid abdo pain Time Seen by Provider: 03/17/25 13:22 Source: patient Mode of arrival: ambulatory Limitations: no limitations History of Present Illness: 24-year-old male states he had a history of a hiatal hernia states that he is having some epigastric abdominal pain started today has had some nausea denies any vomiting states pain sharp in nature he rates it a 6 out of 10 he denies any fevers denies any worse or improving factors. Associated Symptoms: Reports nausea; Denies chills, diarrhea, fever(s) and vomiting Related Data Previous Rx's ?Medication ?Instructions ?Recorded pantoprazole 40 mg tablet,delayed 40 mg PO DAILY #60 t abs 03/17/25 release (Protonix) Allergies Allergy/AdvReac Type Severity Reaction Status Date / Time peanut Allergy ALGY-Anaphy Verified 01/19/24 10:29 laxis Review of Systems 2 Const: Denies: fever(s), chills, body aches or change in appetite ENMT: Denies: throat pain or dental pain Card: Denies: chest pain Resp: Denies: dyspnea GI: Reports: abdominal pain and nausea; Denies: vomiting or diarrhea Musc: Denies: neck pain or back pain Skin/Breast: Denies: rash Physical Exam 2 Const: COMMON NORMALS: no acute distress, patient oriented x3 and healthy appearing HENMT: COMMON NORMALS: normocephalic and atraumatic HEAD & SCALP: n ormocephalic and atraumatic Eye: COMMON NORMALS: conjunctivae normal CONJUNCTIVA: Yes conjunctivae normal Neck/C-Spine: COMMON NORMALS: full ROM and supple Chest: COMMONS NORMALS: normal inspection of the chest Resp: COMMON NORMALS: normal respiratory effort Cardio: COMMON NORMALS: regular rate, regular rhythm and No murmurs present (Cardio) RATE: regular rate RHYTHM: regular rhythm GI: COMMON NORMALS: Normal to inspection, nondistended, normoactive bowel sounds present, Soft to palpation, non-tender and no masses PALPATION: Yes Soft to palpation Extremity: COMMON NORMALS: normal to inspection and full ROM Neuro: COMMON NORMALS: patient oriented x3, moves all extremities and no focal motor deficits Psych: COMMON NORMALS: mental status grossly normal, Normal thought process present and cooperative THOUGHT PROCESS: Normal thought process present Skin: COMMON NORMALS: no rashes or lesions noted and no wounds GENERAL SKIN EXAM: no rashes or lesions noted Course 2 Vital Signs: Vital signs: Vital Signs Temperature 98.1 F 03/17/25 13:31 Pulse Rate 58 L 03/17/25 15:31 Respiratory Rate 18 03/17/25 13:31 Blood Pressure 118/61 03/17/25 15:31 Pulse Oximetry 99 03/17/25 15:31 Oxygen Delivery Me thod Room Air 03/17/25 13:31 MDM - Abdominal Pain Medical Decision Making Patient presents here with abdominal pain he feels much improved here abdominal exam at discharge is benign he has no signs of cholecystitis appendicitis or acute surgical abdomen. CT of his abdomen is negative. He is able to tolerate p.o. will prescribe Protonix did go over his labs and CT with him he is to follow-up with his PCP and return if worsening he understands agrees to plan. Medical Records I reviewed the patient's medical records. Lab Data I reviewed the patient's lab results. 03/17/25 13:44 03/17/25 13:44 Labs/Radiology: Radiology Impressions Abdomen/Pelvis CT 03/17/25 13:36 IMPRESSION: 1. No evidence of acute intra-abdominal or pelvic pathology. Laboratory Results WBC 7.12 10^3/uL (3.29-11.43) 03/17/25 13:44 RBC 5.60 10^6/uL (3.85-5.65) 03/17/25 13:44 Hgb 15.10 g/dL (11.27-16.99) 03/17/25 13:44 Hct 45.9 % (37-53) 03/17/25 13:44 MCV 82.0 fl (82-101) 03/17/25 13:44 MCH 27.0 pg (27-33) 03/17/25 13:44 MCHC 32.9 g/dL (30-55) 03/17/25 13:44 RDW 13.2 % (12.1-15.1) 03/17/25 13:44 Plt Count 260 10^3/cmm (157-399) 03/17/25 13:44 MPV 10.5 fL (7.4-10.4) H 03/17/25 13:44 Neut % (Auto) 64.1 % 03/17/25 13:44 Lymph % (Auto) 23.9 % 03/17/25 13:44 [place] % (Auto) 10.8 % 03/17/25 13:44 Eos % (Auto) 0.4 % 03/17/25 13:44 Baso % (Auto) 0.7 % 03/17/25 13:44 Neut # (Auto) 4.56 10^3/uL (1.8-7.7) 03/17/25 13:44 Lymph # (Auto) 1.7 10^3/uL (0.8-4.8) 03/17/25 13:44 [place] # (Auto) 0.8 10^3/uL (0.2-0.9) 03/17/25 13:44 Eos # (Auto) 0.0 10^3/uL (0.0-0.8) 03/17/25 13:44 Baso # (Auto) 0.1 10^3/uL (0.0-0.1) 03/17/25 13:44 Nucleated RBC % (auto) 0 % 03/17/25 13:44 Nucleated RBCs # 0.0 /100WBC 03/17/25 13:44 Sodium 142 mmol/L (136-145) 03/17/25 13:44 Potassium 4.0 mmol/L (3.5-5.1) 03/17/25 13:44 Chloride 103 mmol/L (98-107) 03/17/25 13:44 Carbon Dioxide 26 mmol/L (22-29) 03/17/25 13:44 Anion Gap 17.0 (5-19) 03/17/25 13:44 BUN 15 mg/dL (6-20) 03/17/25 13:44 Creatinine 0.9 mg/dL (0.7-1.2) 03/17/25 13:44 GFR Calculation 103.7 mL/min (90-130) 03/17/25 13:44 Glucose 112 mg/dL (65-115) 03/17/25 13:44 Calculated Osmolality 296 mOsm/kg (285-295) H 03/17/25 13:44 Calcium 9.6 mg/dL (8.5-10.5) 03/17/25 13:44 Total Bilirubin 0.6 mg/dL (0.15-1.2) 03/17/25 13:44 AST 24 U/L (0-40) 03/17/25 13:44 ALT 23 U/L (0-41) 03/17/25 13:44 Alkaline Phosphatase 68 U/L (40-130) 03/17/25 13:44 Total Protein 8.0 g/dL (6.6-8.7) 03/17/25 13:44 Albumin 5.0 g/dL (3.5-5.2) 03/17/25 13:44 Globulin 3.0 g/dL (1.3-4.6) 03/17/25 13:44 Lipase 18 U/L (13-60) 03/17/25 13:44 All radiology interpretation(s) finalized by discharge Discharge Plan Discharge Patient Disposition: Home Clinical Impression: Abdominal pain Condition: Stable Prescriptions: New pantoprazole [Protonix] 40 mg tablet,delayed release (DR/EC) 40 mg PO DAILY Qty: 60 0RF Discharge Orders: Discharge ED (Routine); Ordered 03/17/25 Ordered By: Maura Wills Discharge Diet: Advance as tolerated Discharge Activity: Resume usual activity Patient Instructions: Abdominal Pain (ED) Print Language: [place] Zealander Coding Level of Care Code ED [employer] Agent for Isabel Landaverde
[2025-03-17] MEDS: ondansetron 2 mg/ML SDV 2 mL 4 MG IVP (13:49)
[2025-03-17] MEDS: lidocaine 2% viscous 15 ML, aluminum-mag hydrox-simethicon 30 ML, sucralfate oral liq 1 GM PO (13:50)
[2025-03-17 13:53] LABS: Hematocrit 45.9 % (37-53); Hemoglobin 15.10 g/dL (11.27-16.99); Mean Corpuscular HGB Conc 32.9 g/dL (30-55); Mean Corpuscular Hemoglobin 27.0 pg (27-33); Mean Corpuscular Volume 82.0 fl (82-101); Nucleated Red Blood Cells % 0 %; Platelet Count 260 10^3/cmm (157-399); Red Blood Count 5.60 10^6/uL (3.85-5.65); White Blood Count 7.12 10^3/uL (3.29-11.43)
[2025-03-17] MEDS: iohexol 350 mg/mL 500 mL Btl (per mL) IV (14:08)
[2025-03-17 14:13] LABS: Alanine Aminotransferase 23 U/L (0-41); Albumin Level 5.0 g/dL (3.5-5.2); Alkaline Phosphatase 68 U/L (40-130); Anion Gap 17.0 (5-19); Aspartate Amino Transferase 24 U/L (0-40); Blood Urea Nitrogen 15 mg/dL (6-20); Calcium 9.6 mg/dL (8.5-10.5); Carbon Dioxide 26 mmol/L (22-29); Chloride 103 mmol/L (98-107); Creatinine Clr Calc Pharmacy 135.1780; Globulin 3.0 g/dL (1.3-4.6); Glucose 112 mg/dL (65-115); Lipase 18 U/L (13-60); Osmolality Calculated 296 mOsm/kg (285-295); Potassium 4.0 mmol/L (3.5-5.1); Sodium 142 mmol/L (136-145); Total Protein 8.0 g/dL (6.6-8.7)
[2025-03-17 14:39] VITALS: BP 129/71; PULSE 59; O2SAT 100
[2025-03-17 15:18] VITALS: BP 129/70; PULSE 51; O2SAT 97
[2025-03-17 15:31] VITALS: BP 118/61; PULSE 58; O2SAT 99
== END 2025-03-17 15:41 | disposition home or self-care (01) ==
PROVIDERS: Emergency Provider Emergency Medicine
DX: R10.13 Epigastric pain (principal)
CPT/HCPCS: 36415; 74177; 80053; 83690; 85025; 96374; 96375; 99285; J1885; J2405; J9999